=== PATIENT | female | born 1955 | race African-American/Black ===

== ENCOUNTER 2017-01-27 21:48 | Emergency (ER) | payer MEDICAID ==
[~2017-01-27] VITALS: Ht 175.3 cm; Wt 100.0 kg
[~2017-01-27 21:48] MED LIST: ACET-2178; ACET-3161 PO; ALBU90AE IH; AMIT25TA9 PO; AMLO5TAB88 PO; ASPI-1158 PO; BACL-141 PO; BENA1TAB18 PO; FLUT16SP15 NS; FLUT1DIS3 IH; GABA-290 PO; HYDR10SY11 PO; LORA10TA7 PO; MONT10TA21 PO; OMEP20CA4 PO; RIZA10TA26 PO; SIMV10TA6 PO; SIMV40TA5 PO; TOPI50TA21 PO
[2017-01-27] MEDS ORDERED: SODIUM CHLORIDE 0.9% 1,000 ML IV ONE (23:06)
[2017-01-27] MEDS ORDERED: ONDANSETRON HCL 4MG/2ML VIAL IV STA (23:06)
[2017-01-27] MEDS ORDERED: MORPHINE SULFATE 4 MG/ML CPJ (NOT FOR IM USE) IV STA (23:06)
[2017-01-27] MEDS ORDERED: VANCOMYCIN 1 G PREMIX 200 ML IV ONE (23:15)
[2017-01-27] MEDS ORDERED: CLINDAMYCIN 600 MG in DEXTROSE 5% WATER 50 ML IV ONE (23:15)
[2017-01-27 23:41] LABS: BASOPHILS % 0.9 % (0.0-2.0); EOSINOPHILS % 4.1 % (0.0-5.0); HEMATOCRIT. 36.6 % (36.0-48.0); HEMOGLOBIN. 12.1 g/dL (12.0-16.0); LYMPHOCYTES % 23.7 % (20.0-50.0); MEAN CORPUSCULAR HEMOGLOBIN 28.7 pg (28.0-32.0); MEAN PLATELET VOLUME 7.9 fl (7.4-10.4); MONOCYTES % 7.2 % (2.0-8.0); NEUTROPHILS % 64.1 % (40.0-76.0); PLATELET 260 x1000/uL (130-400); RED CELL DISTRIBUTION WIDTH 13.8 % (11.6-14.6)
[2017-01-27 23:42] LABS: CHLORIDE 110 mEq/L (98-107)
[2017-01-27 23:51] LABS: C REACTIVE PROTEIN QUANT 8.6 mg/L (0.0-3.0); CARBON DIOXIDE 28 mEq/L (21-32)
[2017-01-28] MEDS ORDERED: MORPHINE SULFATE 4 MG/ML CPJ (NOT FOR IM USE) IV ONE (01:00)
[2017-01-28 08:18] VITALS: BP 135/75
== END 2017-01-28 09:50 | disposition home or self-care (01) ==
LOC: ER 22:18
DX: M96.89 Other intraoperative and postprocedural complications and disorders of the musculoskeletal system (principal); I10 Essential (primary) hypertension; M19.90 Unspecified osteoarthritis, unspecified site; J45.909 Unspecified asthma, uncomplicated; Z87.891 Personal history of nicotine dependence; Z96.652 Presence of left artificial knee joint; Z79.82 Long term (current) use of aspirin; Z88.8 Allergy status to other drugs, medicaments and biological substances
CPT/HCPCS: 36415; 73562; 80053; 83605; 85025; 85651; 86140; 87040; 96365; 96367; 96375; 96376; 99285; J2270; J2405; J3370; J3490; J7030; J7040; Z7610; J7060

== ENCOUNTER → 2017-08-09 | Day surgery (SDC) | payer MEDICAID ==
[~2017-08-09] VITALS: Ht 175.3 cm; Wt 116.6 kg
[~2017-08-09] MED LIST changes: +ALBUTEROL 90MCG/PUFF 17GM INHALER INH ONE; +BUPIVACAINE HCL/EPINEPHRINE 0.5%/0.0005 30ML ONE; +FENTANYL CITRATE/PF 50MCG/ML 2ML VIAL ONE; +HYDROMORPHONE HCL/PF 2MG/ML CPJ IV PRN; +LABETALOL HCL 20MG/4ML CARPUJECT IV PRN; +LACTATED RINGERS 1,000 ML IV SCH; +LIDOCAINE HCL/PF 1% 10 MG/ML 5ML VIAL ONE; +MIDAZOLAM HCL 2 MG/2 ML VIAL ONE; +ONDANSETRON HCL 4MG/2ML VIAL IV PRN; +PROPOFOL 200MG/20ML VIAL IV ONE; -TOPI50TA21 PO; +TOPI50TA24 PO; +TRIAMCINOLONE ACETONIDE 40MG/ML 1ML VIAL ONE
[2017-08-09 08:51] VITALS: BP 142/89
== END | disposition home or self-care (01) ==
LOC: OR 05:35
PROVIDERS: ATTEND Orthopaedic Surgery
DX: M24.662 Ankylosis, left knee (principal); I25.2 Old myocardial infarction; I25.10 Atherosclerotic heart disease of native coronary artery without angina pectoris; I10 Essential (primary) hypertension; K21.9 Gastro-esophageal reflux disease without esophagitis; J45.909 Unspecified asthma, uncomplicated; B19.20 Unspecified viral hepatitis C without hepatic coma; E78.00 Pure hypercholesterolemia, unspecified; M19.90 Unspecified osteoarthritis, unspecified site; E66.01 Morbid (severe) obesity due to excess calories; Z98.890 Other specified postprocedural states; Z87.891 Personal history of nicotine dependence; Z88.8 Allergy status to other drugs, medicaments and biological substances; Z79.82 Long term (current) use of aspirin; Z79.899 Other long term (current) drug therapy
CPT/HCPCS: 27570; J0171; J1170; J2250; J3010; J3301; J3490; J7120; J2704

== ENCOUNTER 2018-11-27 14:22 | Inpatient (IN) | payer MEDICAID ==
[~2018-11-27] VITALS: Ht 175.3 cm; Wt 115.7 kg
[~2018-11-27 14:22] MED LIST changes: -ALBUTEROL 90MCG/PUFF 17GM INHALER INH ONE; -BUPIVACAINE HCL/EPINEPHRINE 0.5%/0.0005 30ML ONE; -FENTANYL CITRATE/PF 50MCG/ML 2ML VIAL ONE; -HYDROMORPHONE HCL/PF 2MG/ML CPJ IV PRN; -LABETALOL HCL 20MG/4ML CARPUJECT IV PRN; -LACTATED RINGERS 1,000 ML IV SCH; -LIDOCAINE HCL/PF 1% 10 MG/ML 5ML VIAL ONE; -MIDAZOLAM HCL 2 MG/2 ML VIAL ONE; -ONDANSETRON HCL 4MG/2ML VIAL IV PRN; -PROPOFOL 200MG/20ML VIAL IV ONE; -TRIAMCINOLONE ACETONIDE 40MG/ML 1ML VIAL ONE
[2018-11-27] MEDS ORDERED: ONDANSETRON HCL 4MG/2ML INJ IV STA (15:13)
[2018-11-27] MEDS ORDERED: MORPHINE SULFATE 4 MG/ML CPJ (NOT FOR IM USE) IV STA (15:13)
[2018-11-27 15:15] LABS: BASOPHILS % 0.8 % (0.0-2.0); EOSINOPHILS % 2.7 % (0.0-5.0); HEMATOCRIT. 38.2 % (36.0-48.0); HEMOGLOBIN. 12.8 g/dL (12.0-16.0); LYMPHOCYTES % 29.7 % (20.0-50.0); MEAN CORPUSCULAR HEMOGLOBIN 29.8 pg (28.0-32.0); MEAN CORPUSCULAR VOLUME 88.9 fL (81.0-99.0); MEAN PLATELET VOLUME 7.4 fl (7.4-10.4); MONOCYTES % 6.6 % (2.0-8.0); NEUTROPHILS % 60.2 % (40.0-76.0); PLATELET 222 x1000/uL (130-400); RED CELL DISTRIBUTION WIDTH 14.3 % (11.6-14.6)
[2018-11-27] MEDS ORDERED: NITROGLYCERIN OINT 1GM/INCH UDPKT TD ONE (15:15)
[2018-11-27] MEDS ORDERED: ASPIRIN 81MG TABLET PO ONE (15:15)
[2018-11-27 15:19] LABS: PARTIAL THROMBOPLASTIN TIME 29.2 sec (23.4-31.0); PROTHROMBIN TIME 10.2 sec (9.6-11.0)
[2018-11-27 15:26] LABS: CHLORIDE 113 mEq/L (98-107)
[2018-11-27 15:31] LABS: ETHANOL BLOOD < 10 mg/dL
[2018-11-27 15:40] LABS: T4 FREE 0.84 ng/dL (0.76-1.46)
[2018-11-27] MEDS ORDERED: DILTIAZEM HCL 5MG/ML 5ML VIAL IV ONE (16:00)
[2018-11-27] MEDS ORDERED: HYDROCODONE/ACETAMINOPHEN 5/325MG TABLET PO ONE (16:45)
[2018-11-27] MEDS ORDERED: NITROGLYCERIN 0.4MG TABLET SL SL ONE (16:45)
[2018-11-27] MEDS ORDERED: DIPHENHYDRAMINE 50MG/ML VIAL IV PRN (19:00)
[2018-11-27] MEDS ORDERED: LORAZEPAM 2MG/ML CPJ IV PRN (19:00)
[2018-11-27] MEDS ORDERED: ONDANSETRON HCL 4MG/2ML INJ IV PRN (19:00)
[2018-11-27] MEDS ORDERED: NA PHOS,M-B/NA PHOS,DI-BA ENEMA 118ML PR PRN (19:00)
[2018-11-27] MEDS ORDERED: DOCUSATE SODIUM 100MG CAPSULE PO PRN (19:00)
[2018-11-27] MEDS ORDERED: HYDRALAZINE 20MG/ML VIAL IV PRN (19:00)
[2018-11-27] MEDS ORDERED: ACETAMINOPHEN 325MG TABLET PO PRN (19:00)
[2018-11-27] MEDS ORDERED: IPRATROPIUM/ALBUTEROL 0.5-3(2.5)MG/3ML NEB INH PRN (19:00)
[2018-11-27] MEDS ORDERED: MAGNESIUM/ALUMINUM HYDROXIDE/SIMETHICONE 30ML UDC PO PRN (19:00)
[2018-11-27] MEDS ORDERED: CLONIDINE 0.1MG TABLET PO PRN (19:00)
[2018-11-27] MEDS ORDERED: GUAIFENESIN 200MG/10ML SUGAR FREE UDC PO PRN (19:00)
[2018-11-27 23:40] VITALS: BP 121/78
[2018-11-28 00:47] LABS: CREATINE KINASE 53 IU/L (26-192)
[2018-11-28 00:48] LABS: CREATINE KINASE MB FRACTION < 1.0 ng/mL (0.5-3.6)
[2018-11-28] MEDS: HYDROMORPHONE HCL/PF 2MG/ML CPJ IV PRN ×3 (01:54→19:00)
[2018-11-28] MEDS ORDERED: NASOI BOTHNSTRLS (03:05)
[2018-11-28 03:59] VITALS: BP 102/61
[2018-11-28] MEDS: SODIUM CHLORIDE 0.9% INJ 3ML FLUSH IVF SCH ×3 (05:42→20:56)
[2018-11-28 06:31] LABS: BASOPHILS % 0.4 % (0.0-2.0); EOSINOPHILS % 3.3 % (0.0-5.0); HEMATOCRIT. 35.5 % (36.0-48.0); HEMOGLOBIN. 11.8 g/dL (12.0-16.0); LYMPHOCYTES % 28.6 % (20.0-50.0); MEAN CORPUSCULAR HEMOGLOBIN 29.9 pg (28.0-32.0); MEAN CORPUSCULAR VOLUME 89.5 fL (81.0-99.0); MEAN PLATELET VOLUME 7.6 fl (7.4-10.4); MONOCYTES % 6.6 % (2.0-8.0); NEUTROPHILS % 61.1 % (40.0-76.0); PLATELET 197 x1000/uL (130-400); RED BLOOD CELL COUNT 3.97 mill/uL (4.2-5.4); RED CELL DISTRIBUTION WIDTH 14.3 % (11.6-14.6)
[2018-11-28 06:38] LABS: CHLORIDE 112 mEq/L (98-107)
[2018-11-28 06:47] LABS: CREATINE KINASE 49 IU/L (26-192)
[2018-11-28 06:49] LABS: CREATINE KINASE MB FRACTION < 1.0 ng/mL (0.5-3.6)
[2018-11-28] MEDS: HYDROCODONE/ACETAMINOPHEN 10/325MG TABLET PO PRN ×2 (08:05→22:35)
[2018-11-28] MEDS: ASPIRIN 81MG EC TABLET PO SCH (08:05)
[2018-11-28 09:10] VITALS: BP 126/66
[2018-11-28 09:58] LABS: T4 FREE 0.87 ng/dL (0.76-1.46)
[2018-11-28 12:00] VITALS: BP 146/87
[2018-11-28 15:09] LABS: CREATINE KINASE 47 IU/L (26-192)
[2018-11-28 15:10] LABS: CREATINE KINASE MB FRACTION < 1.0 ng/mL (0.5-3.6)
[2018-11-28 16:00] VITALS: BP 104/56
[2018-11-28] MEDS: APIXABAN 5 MG TABLET PO SCH (18:59)
[2018-11-28 20:10] VITALS: BP 124/94
[2018-11-28 23:47] VITALS: BP 124/68
[2018-11-29 00:41] LABS: CREATINE KINASE 45 IU/L (26-192)
[2018-11-29 00:42] LABS: CREATINE KINASE MB FRACTION < 1.0 ng/mL (0.5-3.6)
[2018-11-29 03:57] VITALS: BP 118/76
[2018-11-29] MEDS: SODIUM CHLORIDE 0.9% INJ 3ML FLUSH IVF SCH (05:09)
[2018-11-29] MEDS: APIXABAN 5 MG TABLET PO SCH (08:25)
[2018-11-29] MEDS: ASPIRIN 81MG EC TABLET PO SCH (08:25)
[2018-11-29] MEDS: HYDROMORPHONE HCL/PF 2MG/ML CPJ IV PRN (08:28)
[2018-11-29 09:48] LABS: CREATINE KINASE 45 IU/L (26-192); CREATINE KINASE MB FRACTION < 1.0 ng/mL (0.5-3.6)
[2018-11-29] MEDS: HYDROCODONE/ACETAMINOPHEN 10/325MG TABLET PO PRN (13:24)
[2018-11-29 14:13] VITALS: BP 116/63
== END 2018-11-29 16:00 | disposition home or self-care (01) | DRG 201 ==
LOC: ER 14:22 → 6WST 16:02 → EDBEDREQ 16:09 → ENRESERV 20:27
PROVIDERS: ADMIT Internal Medicine; ATTEND Internal Medicine
DX: I48.91 Unspecified atrial fibrillation (principal); E66.9 Obesity, unspecified; R07.9 Chest pain, unspecified; I25.2 Old myocardial infarction; G43.909 Migraine, unspecified, not intractable, without status migrainosus; I10 Essential (primary) hypertension; J45.909 Unspecified asthma, uncomplicated; Z96.659 Presence of unspecified artificial knee joint; Z90.710 Acquired absence of both cervix and uterus; Z88.8 Allergy status to other drugs, medicaments and biological substances; Z79.899 Other long term (current) drug therapy; Z68.37 Body mass index [BMI] 37.0-37.9, adult
CPT/HCPCS: 36415; 71045; 80061; 80320; 82550; 82553; 83036; 83735; 83880; 84439; 84443; 84481; 84484; 85379; 93005; 93306; 93970; 96374; 96375; 99291; J1170; J2270; J2405; J3490; G0480

== ENCOUNTER 2019-01-05 16:48 | Emergency (ER) | payer MEDICAID ==
[~2019-01-05 16:48] MED LIST changes: +NASOI BOTHNSTRLS
[2019-01-05 16:51] VITALS: BP 166/100
[2019-01-05] MEDS ORDERED: BACITRACIN ZINC OINT UDPKT TOP ONE (18:15)
[2019-01-05] MEDS ORDERED: TETANUS, DIPHTHERIA, PERTUSSIS VAC/PF 0.5ML (>7YR OLD) IM ONE (18:15)
== END 2019-01-05 19:21 | disposition home or self-care (01) ==
LOC: ER 16:48
DX: S00.81XA Abrasion of other part of head, initial encounter (principal); E78.00 Pure hypercholesterolemia, unspecified; I10 Essential (primary) hypertension; Z90.710 Acquired absence of both cervix and uterus; Z96.659 Presence of unspecified artificial knee joint; Z98.890 Other specified postprocedural states; Z79.899 Other long term (current) drug therapy; Z88.8 Allergy status to other drugs, medicaments and biological substances; Y08.89XA Assault by other specified means, initial encounter; Y93.89 Activity, other specified; Y92.89 Other specified places as the place of occurrence of the external cause; Y99.8 Other external cause status
CPT/HCPCS: 90471; 90715; 99283

== ENCOUNTER 2019-01-23 10:37 | Emergency (ER) | payer MEDICAID | END 2019-01-23 11:41 | disposition left against medical advice (07) | LOC: ER 10:37 | DX: R07.89 Other chest pain (principal); M79.602 Pain in left arm; Z53.21 Procedure and treatment not carried out due to patient leaving prior to being seen by health care provider ==

== ENCOUNTER 2019-01-31 00:07 | Emergency (ER) | payer MEDICAID ==
[~2019-01-31] VITALS: Ht 175.3 cm; Wt 102.0 kg
[2019-01-31] MEDS ORDERED: HYDROCODONE/ACETAMINOPHEN 5/325MG TABLET PO ONE (02:00)
[2019-01-31 03:45] VITALS: BP 136/78
== END 2019-01-31 03:46 | disposition home or self-care (01) ==
LOC: ER 00:07
DX: S90.121A Contusion of right lesser toe(s) without damage to nail, initial encounter (principal); M79.671 Pain in right foot; X58.XXXA Exposure to other specified factors, initial encounter; Y93.9 Activity, unspecified; Y92.89 Other specified places as the place of occurrence of the external cause
CPT/HCPCS: 73630; 99283

== ENCOUNTER 2019-02-10 13:17 | Emergency (ER) | payer MEDICAID ==
[~2019-02-10] VITALS: Ht 175.3 cm; Wt 102.0 kg
[2019-02-10] MEDS ORDERED: KETOROLAC 60MG/2ML VIAL IM STA (14:39)
[2019-02-10 16:00] VITALS: BP 164/84
== END 2019-02-10 16:10 | disposition home or self-care (01) ==
LOC: ER 13:17
DX: G57.81 Other specified mononeuropathies of right lower limb (principal); I10 Essential (primary) hypertension
CPT/HCPCS: 73630; 96372; 99283; J1885; Z7610

== ENCOUNTER 2019-02-24 22:52 | Emergency (ER) | payer MEDICAID ==
[~2019-02-24] VITALS: Ht 175.3 cm; Wt 102.0 kg
[2019-02-24 23:10] VITALS: BP 157/85
[2019-02-24] MEDS ORDERED: ASPIRIN 81MG TABLET PO ONE (23:30)
[2019-02-24] MEDS ORDERED: NITROGLYCERIN 0.4MG TABLET SL SL PRN (23:30)
[2019-02-24] MEDS ORDERED: ASPIRIN 325MG EC TABLET PO NR (23:35)
[2019-02-24 23:40] LABS: CHLORIDE 109 mEq/L (98-107)
[2019-02-24 23:41] LABS: BASOPHILS % 0.8 % (0.0-2.0); EOSINOPHILS % 3.5 % (0.0-5.0); HEMATOCRIT. 41.1 % (36.0-48.0); HEMOGLOBIN. 13.7 g/dL (12.0-16.0); LYMPHOCYTES % 32.7 % (20.0-50.0); MEAN CORPUSCULAR HEMOGLOBIN 29.7 pg (28.0-32.0); MEAN CORPUSCULAR VOLUME 88.7 fL (81.0-99.0); MEAN PLATELET VOLUME 8.1 fl (7.4-10.4); PLATELET 207 x1000/uL (130-400); RED BLOOD CELL COUNT 4.63 mill/uL (4.2-5.4); RED CELL DISTRIBUTION WIDTH 14.4 % (11.6-14.6)
[2019-02-25] MEDS ORDERED: ONDANSETRON HCL 4MG/2ML INJ IV STA (00:24)
[2019-02-25] MEDS ORDERED: MORPHINE SULFATE 4 MG/ML CPJ (NOT FOR IM USE) IV STA (00:24)
== END 2019-02-25 02:32 | disposition left against medical advice (07) ==
LOC: ER 22:52 → CANBEDREQ 02-25 02:35
DX: R07.89 Other chest pain (principal); R06.02 Shortness of breath; J45.909 Unspecified asthma, uncomplicated; I10 Essential (primary) hypertension; Z90.710 Acquired absence of both cervix and uterus; Z79.82 Long term (current) use of aspirin; Z79.899 Other long term (current) drug therapy; Z88.5 Allergy status to narcotic agent
CPT/HCPCS: 36415; 71045; 80053; 83880; 84484; 85025; 85379; 93005; 96374; 96375; 99284; J2270; J2405; Z7610

== ENCOUNTER 2019-05-14 08:48 | Emergency (ER) | payer MEDICARE, MEDICAID ==
[~2019-05-14] VITALS: Ht 175.3 cm; Wt 96.0 kg
[2019-05-14 09:38] VITALS: BP 151/88
[2019-05-14] MEDS ORDERED: LIDOCAINE HCL 1% 20ML VIAL (Pyxis) INJ INFIL ONE (10:30)
[2019-05-14] MEDS ORDERED: HYDROCODONE/ACETAMINOPHEN 5/325MG TABLET PO STA (10:45)
== END 2019-05-14 12:45 | disposition home or self-care (01) ==
LOC: ER 08:48
DX: M25.562 Pain in left knee (principal); M25.572 Pain in left ankle and joints of left foot; Z98.890 Other specified postprocedural states; Z91.81 History of falling; I10 Essential (primary) hypertension
CPT/HCPCS: 73562; 73610; 99283

== ENCOUNTER 2019-10-03 19:36 | Emergency (ER) | payer MEDICARE, MEDICAID ==
[~2019-10-03] VITALS: Ht 175.3 cm; Wt 117.0 kg
[~2019-10-03 19:36] MED LIST changes: -ACET-2178; +SIMV-46 PO; -SIMV10TA6 PO; +SIMV10TA97 PO; -SIMV40TA5 PO; +TOPUD
[2019-10-04 00:49] LABS: CHLORIDE 110 mEq/L (98-107)
[2019-10-04 00:55] LABS: BASOPHILS % 0.6 % (0.0-2.0); EOSINOPHILS % 3.5 % (0.0-5.0); HEMATOCRIT. 43.7 % (36.0-48.0); HEMOGLOBIN. 14.3 g/dL (12.0-16.0); LYMPHOCYTES % 23.2 % (20.0-50.0); MEAN CORPUSCULAR HEMOGLOBIN 29.3 pg (28.0-32.0); MEAN CORPUSCULAR VOLUME 89.5 fL (81.0-99.0); MEAN PLATELET VOLUME 7.9 fl (7.4-10.4); NEUTROPHILS % 65.7 % (40.0-76.0); PLATELET 234 x1000/uL (130-400); RED BLOOD CELL COUNT 4.89 mill/uL (4.2-5.4); RED CELL DISTRIBUTION WIDTH 13.7 % (11.6-14.6)
[2019-10-04] MEDS ORDERED: KETOROLAC 60MG/2ML VIAL IM ONE (01:30)
[2019-10-04 05:05] VITALS: BP 139/99
== END 2019-10-04 06:06 | disposition home or self-care (01) ==
LOC: ER 19:36
DX: M79.661 Pain in right lower leg (principal); I10 Essential (primary) hypertension; R60.0 Localized edema; Z88.5 Allergy status to narcotic agent; Z79.899 Other long term (current) drug therapy; J45.909 Unspecified asthma, uncomplicated; Z90.710 Acquired absence of both cervix and uterus
CPT/HCPCS: 36415; 80053; 83880; 85025; 85730; 93971; 96372; 99285; J1885

== ENCOUNTER 2020-02-10 16:48 | Emergency (ER) | payer MEDICARE, MEDICAID ==
[~2020-02-10] VITALS: Ht 175.3 cm; Wt 118.0 kg
[2020-02-10 17:34] VITALS: BP 163/100
[2020-02-10] MEDS ORDERED: ACETAMINOPHEN WITH CODEINE 300/30MG TABLET PO ONE (18:45)
== END 2020-02-10 20:47 | disposition home or self-care (01) ==
LOC: ER 16:48
DX: M25.562 Pain in left knee (principal); J45.909 Unspecified asthma, uncomplicated; I10 Essential (primary) hypertension; Z90.710 Acquired absence of both cervix and uterus; Z98.890 Other specified postprocedural states; Z79.82 Long term (current) use of aspirin; Z79.899 Other long term (current) drug therapy; Z88.6 Allergy status to analgesic agent
CPT/HCPCS: 73562; 99283

== ENCOUNTER 2020-10-13 15:46 | Inpatient (IN) | payer MEDICARE, MEDICAID ==
[~2020-10-13] VITALS: Ht 175.3 cm; Wt 129.3 kg
[~2020-10-13 15:46] MED LIST changes: -ASPI-1158 PO; +ASPI-1406 PO; -SIMV10TA97 PO; -TOPUD; +TOPUD PO
[2020-10-13] MEDS ORDERED: MORPHINE SULFATE 4 MG/ML CPJ (NOT FOR IM USE) IV STA (16:41)
[2020-10-13] MEDS ORDERED: METOPROLOL TARTRATE 50MG TABLET PO ONE (16:45)
[2020-10-13] MEDS ORDERED: MAGNESIUM 2 G PREMIX 50 ML IV ONE (16:45)
[2020-10-13] MEDS ORDERED: METOPROLOL TARTRATE 5MG/5ML VIAL IV ONE (16:45)
[2020-10-13] MEDS ORDERED: FUROSEMIDE 40MG/4ML VIAL IV ONE (16:45)
[2020-10-13 17:30] LABS: BASOPHILS % 0.5 % (0.0-2.0); EOSINOPHILS % 1.1 % (0.0-5.0); HEMATOCRIT. 43.1 % (36.0-48.0); HEMOGLOBIN. 14.2 g/dL (12.0-16.0); LYMPHOCYTES % 23.1 % (20.0-50.0); MEAN CORPUSCULAR VOLUME 87.9 fL (81.0-99.0); MEAN PLATELET VOLUME 7.5 fl (7.4-10.4); MONOCYTES % 6.7 % (2.0-8.0); NEUTROPHILS % 68.6 % (40.0-76.0); PLATELET 221 x1000/uL (130-400); RED CELL DISTRIBUTION WIDTH 14.9 % (11.6-14.6)
[2020-10-13 17:35] LABS: CHLORIDE 108 mEq/L (98-107)
[2020-10-13 17:38] LABS: PROTHROMBIN TIME 10.6 sec (9.6-11.0)
[2020-10-13] MEDS ORDERED: DIPHENHYDRAMINE 50MG/ML VIAL IV PRN (20:15)
[2020-10-13] MEDS ORDERED: ONDANSETRON HCL 4MG/2ML INJ IV PRN (20:15)
[2020-10-13] MEDS ORDERED: MAGNESIUM/ALUMINUM HYDROXIDE/SIMETHICONE 30ML UDC PO PRN (20:15)
[2020-10-13] MEDS ORDERED: CLONIDINE 0.1MG TABLET PO PRN (20:15)
[2020-10-13] MEDS ORDERED: GUAIFENESIN 200MG/10ML SUGAR FREE UDC PO PRN (20:15)
[2020-10-13] MEDS ORDERED: ACETAMINOPHEN 325MG TABLET PO PRN (20:15)
[2020-10-13] MEDS ORDERED: CARVEDILOL 6.25 MG TABLET PO SCH (21:00)
[2020-10-13] MEDS ORDERED: ZOLPIDEM TARTRATE 5MG TABLET PO PRN (21:00)
[2020-10-13] MEDS ORDERED: ENOXAPARIN 40MG/0.4ML SYR SUBCUT SCH (21:00)
[2020-10-13] MEDS: ACETAMINOPHEN 325MG TABLET PO PRN (21:39)
[2020-10-13] MEDS: ATORVASTATIN CALCIUM 40MG TABLET PO SCH (21:55)
[2020-10-13] MEDS: AMITRIPTYLINE 25MG TABLET PO SCH (21:55)
[2020-10-13] MEDS ORDERED: DILTIAZEM HCL 60MG TABLET PO SCH (22:00)
[2020-10-13] MEDS ORDERED: GABAPENTIN 100MG CAPSULE PO SCH (22:00)
[2020-10-13] MEDS: SODIUM CHLORIDE 0.9% INJ 3ML FLUSH IVF SCH (22:42)
[2020-10-13] MEDS ORDERED: HYDROCODONE/ACETAMINOPHEN 10/325MG TABLET PO NR (22:45)
[2020-10-13] MEDS ORDERED: MAGNESIUM HYDROXIDE 400MG/5ML 30ML UDC PO PRN (23:30)
[2020-10-13] MEDS ORDERED: HYDROXYZINE 10 MG TABLET PO PRN (23:30)
[2020-10-13] MEDS ORDERED: BUDESONIDE 0.5MG/2ML NEB HHN SCH (23:45)
[2020-10-14] VITALS (12 sets, daily range): BP systolic 97–124; BP diastolic 66–80
[2020-10-14] MEDS ORDERED: SODIUM CHLORIDE 0.9% 1,000 ML IV ONE (00:30)
[2020-10-14] MEDS: KETOROLAC 30MG/ML VIAL IV PRN ×2 (03:38→10:37)
[2020-10-14] MEDS: OMEPRAZOLE 20MG CAPSULE EXTENDED RELEASE PO SCH ×2 (06:55→21:45)
[2020-10-14] MEDS: SODIUM CHLORIDE 0.9% INJ 3ML FLUSH IVF SCH ×3 (06:56→21:56)
[2020-10-14] MEDS: GABAPENTIN 400MG CAPSULE PO SCH ×3 (06:56→21:46)
[2020-10-14] MEDS: LORATADINE 10MG TABLET PO SCH (08:34)
[2020-10-14] MEDS: TOPIRAMATE 25MG TABLET PO SCH ×2 (08:34→21:56)
[2020-10-14] MEDS: DOCUSATE SODIUM 100MG CAPSULE PO SCH ×2 (08:35→17:22)
[2020-10-14] MEDS: ASPIRIN 81MG EC TABLET PO SCH (08:35)
[2020-10-14] MEDS ORDERED: LOSARTAN POTASSIUM 25 MG TABLET PO SCH (09:00)
[2020-10-14 10:09] LABS: EOSINOPHILS % 1.5 % (0.0-5.0); HEMOGLOBIN. 13.4 g/dL (12.0-16.0); LYMPHOCYTES % 24.7 % (20.0-50.0); MEAN CORPUSCULAR HEMOGLOBIN 28.7 pg (28.0-32.0); MEAN CORPUSCULAR VOLUME 87.6 fL (81.0-99.0); MEAN PLATELET VOLUME 7.5 fl (7.4-10.4); MONOCYTES % 7.6 % (2.0-8.0); NEUTROPHILS % 65.2 % (40.0-76.0); PLATELET 206 x1000/uL (130-400); RED BLOOD CELL COUNT 4.68 mill/uL (4.2-5.4); RED CELL DISTRIBUTION WIDTH 15.2 % (11.6-14.6)
[2020-10-14 10:16] LABS: CHLORIDE 106 mEq/L (98-107)
[2020-10-14 10:21] LABS: PHOSPHORUS 4.1 mg/dL (2.5-4.9)
[2020-10-14] MEDS ORDERED: POTASSIUM CHLORIDE 20MEQ/PACKET PO SCH (13:00)
[2020-10-14] MEDS: DILTIAZEM HCL 60MG TABLET PO SCH ×2 (14:00→21:19)
[2020-10-14] MEDS: ENOXAPARIN 120MG/0.8ML SYR SUBCUT SCH (14:34)
[2020-10-14] MEDS: MONTELUKAST SODIUM 10MG TABLET PO SCH (17:22)
[2020-10-14] MEDS: HYDROCODONE/ACETAMINOPHEN 10/325MG TABLET PO PRN (17:23)
[2020-10-14] MEDS: ATORVASTATIN CALCIUM 40MG TABLET PO SCH (21:45)
[2020-10-14] MEDS: AMITRIPTYLINE 25MG TABLET PO SCH (21:45)
[2020-10-14] MEDS: ACETAMINOPHEN 325MG TABLET PO PRN (21:47)
[2020-10-15] VITALS (10 sets, daily range): BP systolic 111–157; BP diastolic 53–97
[2020-10-15] MEDS: HYDROCODONE/ACETAMINOPHEN 10/325MG TABLET PO PRN ×2 (05:09→13:38)
[2020-10-15] MEDS: SODIUM CHLORIDE 0.9% INJ 3ML FLUSH IVF SCH ×2 (06:13→14:00)
[2020-10-15] MEDS: DILTIAZEM HCL 60MG TABLET PO SCH ×3 (06:14→21:19)
[2020-10-15] MEDS: GABAPENTIN 400MG CAPSULE PO SCH ×3 (06:14→21:19)
[2020-10-15] MEDS: ENOXAPARIN 120MG/0.8ML SYR SUBCUT SCH ×2 (06:15→17:47)
[2020-10-15] MEDS: OMEPRAZOLE 20MG CAPSULE EXTENDED RELEASE PO SCH ×2 (07:08→21:18)
[2020-10-15 07:53] LABS: BASOPHILS % 0.6 % (0.0-2.0); EOSINOPHILS % 3.4 % (0.0-5.0); HEMATOCRIT. 40.9 % (36.0-48.0); HEMOGLOBIN. 13.1 g/dL (12.0-16.0); LYMPHOCYTES % 31.3 % (20.0-50.0); MEAN CORPUSCULAR HEMOGLOBIN 28.5 pg (28.0-32.0); MEAN PLATELET VOLUME 7.8 fl (7.4-10.4); MONOCYTES % 7.8 % (2.0-8.0); NEUTROPHILS % 56.9 % (40.0-76.0); PLATELET 185 x1000/uL (130-400); RED CELL DISTRIBUTION WIDTH 15.2 % (11.6-14.6)
[2020-10-15 08:09] LABS: CHLORIDE 103 mEq/L (98-107)
[2020-10-15] MEDS: DOCUSATE SODIUM 100MG CAPSULE PO SCH ×2 (08:58→17:47)
[2020-10-15] MEDS: LORATADINE 10MG TABLET PO SCH (08:58)
[2020-10-15] MEDS: TOPIRAMATE 25MG TABLET PO SCH ×2 (08:58→21:18)
[2020-10-15] MEDS: ASPIRIN 81MG EC TABLET PO SCH (08:58)
[2020-10-15] MEDS: KETOROLAC 30MG/ML VIAL IV PRN (08:59)
[2020-10-15] MEDS: MONTELUKAST SODIUM 10MG TABLET PO SCH (17:49)
[2020-10-15] MEDS: ATORVASTATIN CALCIUM 40MG TABLET PO SCH (21:18)
[2020-10-15] MEDS: AMITRIPTYLINE 25MG TABLET PO SCH (21:19)
[2020-10-16] MEDS ORDERED: ENOXAPARIN 150MG/ML SYR SUBCUT SCH (06:00)
== END 2020-10-15 23:07 | disposition home or self-care (01) | DRG 201 ==
LOC: ER 15:46 → 6WST 19:15 → ENRESERV 22:34 → 3WST 10-14 02:24
PROVIDERS: ADMIT Internal Medicine; ATTEND Internal Medicine
DX: I48.0 Paroxysmal atrial fibrillation (principal); I11.0 Hypertensive heart disease with heart failure; E66.9 Obesity, unspecified; M16.12 Unilateral primary osteoarthritis, left hip; G43.909 Migraine, unspecified, not intractable, without status migrainosus; E78.5 Hyperlipidemia, unspecified; F41.1 Generalized anxiety disorder; G89.4 Chronic pain syndrome; J44.9 Chronic obstructive pulmonary disease, unspecified; Z96.652 Presence of left artificial knee joint; Z68.41 Body mass index [BMI] 40.0-44.9, adult; Z87.891 Personal history of nicotine dependence; Z90.710 Acquired absence of both cervix and uterus; Z91.81 History of falling; Z88.8 Allergy status to other drugs, medicaments and biological substances; Z79.82 Long term (current) use of aspirin; Z79.899 Other long term (current) drug therapy; Z79.01 Long term (current) use of anticoagulants; I50.33 Acute on chronic diastolic (congestive) heart failure
CPT/HCPCS: 36415; 71045; 73502; 73560; 80048; 80053; 82962; 83735; 83880; 84100; 84443; 84484; 85025; 93005; 93306; 96374; 97116; 97162; 97530; 99291; J1650; J1885; J1940; J2270; J3475; J3490

== ENCOUNTER 2021-02-11 22:21 | Emergency (ER) | payer MEDICARE, MEDICAID ==
[~2021-02-11] VITALS: Ht 170.2 cm; Wt 103.0 kg
[2021-02-11] MEDS ORDERED: ONDANSETRON HCL 4MG/2ML INJ IV ONE (22:45)
[2021-02-11] MEDS ORDERED: DICYCLOMINE 10 MG/5 ML ORAL SYR PO ONE (22:45)
[2021-02-11] MEDS ORDERED: FAMOTIDINE 20MG/2ML VIAL IV ONE (22:45)
[2021-02-11] MEDS ORDERED: MAGNESIUM/ALUMINUM HYDROXIDE/SIMETHICONE 30ML UDC PO ONE (22:45)
[2021-02-11] MEDS ORDERED: VISCOUS LIDOCAINE 2% 15 ML UDC PO ONE (22:45)
[2021-02-11 23:23] LABS: HEMATOCRIT 38.7 % (36.0-48.0); HEMOGLOBIN 13.4 g/dL (12.0-16.0); MEAN CORPUSCULAR HEMOGLOBIN 30.2 pg (28.0-32.0); MEAN CORPUSCULAR VOLUME 87.4 fL (81.0-99.0); PLATELET 226 x1000/uL (130-400); RED BLOOD CELL COUNT 4.42 mill/uL (4.2-5.4); RED CELL DISTRIBUTION WIDTH 14.2 % (11.6-14.6)
[2021-02-11 23:26] LABS: CHLORIDE 113 mEq/L (98-107)
[2021-02-12 01:10] VITALS: BP 145/95
== END 2021-02-12 01:37 | disposition home or self-care (01) ==
LOC: ER 22:21
DX: K29.70 Gastritis, unspecified, without bleeding (principal); I11.9 Hypertensive heart disease without heart failure; J45.909 Unspecified asthma, uncomplicated; Z90.710 Acquired absence of both cervix and uterus
CPT/HCPCS: 36415; 80053; 83690; 85027; 93005; 96374; 96375; 99284; J2405; J3490

== ENCOUNTER 2024-04-04 18:52 | Emergency (ER) | payer MEDICARE, MEDICAID ==
[~2024-04-04] VITALS: Ht 177.8 cm; Wt 127.0 kg
[~2024-04-04 18:52] MED LIST changes: +ALBU18HF2 IH; -ALBU90AE IH; +AMLO10TA80 PO; -AMLO5TAB88 PO; +APIX5TAB MT; -ASPI-1406 PO; -BACL-141 PO; -BENA1TAB18 PO; +BENA1TAB19 PO; +CARV12.545 MT; +FLUT15.844 BOTHNSTRLS; -FLUT16SP15 NS; +FLUT1DIS2 INH; -FLUT1DIS3 IH; -GABA-290 PO; +GABA800T97 PO; +HYDR-4001 MT; +HYDR-4009 MT; -HYDR10SY11 PO; +MAGN500C4 PO; +MELA3TAB71 MT; +MELO-106 PO; +METO5TAB94 PO; +MONT-46 PO; -MONT10TA21 PO; -NASOI BOTHNSTRLS; -OMEP20CA4 PO; +RIZA-4 PO; -RIZA10TA26 PO; +SUCR1TAB MT; +TOPI-95 PO; -TOPI50TA24 PO; -TOPUD PO
[2024-04-04 19:06] VITALS: O2SAT 100
[2024-04-04 19:48] LABS: BASOPHILS % 0.6 % (0.0-2.0); EOSINOPHILS % 2.7 % (0.0-5.0); HEMATOCRIT. 39.6 % (36.0-48.0); HEMOGLOBIN. 12.7 g/dL (12.0-16.0); LYMPHOCYTES % 28.2 % (20.0-50.0); MEAN CORPUSCULAR HEMOGLOBIN 29.2 pg (28.0-32.0); MEAN CORPUSCULAR VOLUME 91.1 fL (81.0-99.0); MONOCYTES % 7.6 % (2.0-8.0); NEUTROPHILS % 60.9 % (40.0-76.0); PLATELET 180 x1000/uL (130-400); RED BLOOD CELL COUNT 4.34 mill/uL (4.2-5.4); RED CELL DISTRIBUTION WIDTH 15.6 % (11.6-14.6); WHITE BLOOD COUNT 5.4 x1000/uL (4.5-11.0)
[2024-04-04 19:53] LABS: CHLORIDE 112 mEq/L (98-107); POTASSIUM 4.2 mEq/L (3.5-5.1); SODIUM 145 mEq/L (136-145)
[2024-04-04 19:54] LABS: CARBON DIOXIDE 28 mEq/L (21-32)
[2024-04-04 19:55] LABS: CALCIUM 9.5 mg/dL (8.7-10.4)
[2024-04-04 19:59] LABS: CREATININE 0.7 mg/dL (0.6-1.0); GLUCOSE 101 mg/dL (70-105)
[2024-04-04 20:00] LABS: UREA NITROGEN BLOOD 19 mg/dL (9-23)
[2024-04-04 20:01] LABS: ALANINE AMINOTRANSFERASE 20 IU/L (10-49); ALBUMIN 4.6 g/dL (3.2-4.8); ASPARTATE AMINOTRANSFERASE 21 IU/L (<34); TROPONIN I HIGH SENSITIVITY 7 ng/L (3.0-34)
[2024-04-04 20:02] LABS: BILIRUBIN DIRECT 0.2 mg/dL (<=3.0); BILIRUBIN TOTAL 0.7 mg/dL (0.1-1.0)
[2024-04-04] MEDS ORDERED: POTA-205 MT (20:27)
[2024-04-04] MEDS ORDERED: FURO20TA4 MT (20:27)
[2024-04-04 20:36] LABS: CLARITY URINE CLEAR (CLEAR); COLOR URINE YELLOW (YELLOW); GLUCOSE URINE NEGATIVE (NEGATIVE); KETONES URINE NEGATIVE (NEGATIVE); LEUKOCYTE ESTERASE URINE NEGATIVE (NEGATIVE); NITRITE URINE NEGATIVE (NEGATIVE); OCCULT BLOOD URINE 1+ (NEGATIVE); PH URINE 7.5 (4.5-8.0); PROTEIN URINE 1+ (NEGATIVE); SPECIFIC GRAVITY URINE 1.022 (1.005-1.030)
[2024-04-04 20:47] LABS: BACTERIA URINE 1+; SQUAMOUS EPITHELIAL CELL URINE FEW /lpf (RARE/1+); WBC URINE 0-2 /hpf (0-2)
[2024-04-04] MEDS: FUROSEMIDE 40MG/4ML VIAL IM ONE (21:01)
[2024-04-04 21:04] VITALS: BP 158/90; PULSE 71; RESP 17; TEMP 36.83628; O2SAT 100
== END 2024-04-04 21:07 | disposition home or self-care (01) ==
LOC: ER 18:52
DX: R60.0 Localized edema (principal); I50.9 Heart failure, unspecified; J45.909 Unspecified asthma, uncomplicated; E78.00 Pure hypercholesterolemia, unspecified; I11.0 Hypertensive heart disease with heart failure; G43.909 Migraine, unspecified, not intractable, without status migrainosus; Z90.710 Acquired absence of both cervix and uterus; Z98.890 Other specified postprocedural states; Z79.899 Other long term (current) drug therapy
CPT/HCPCS: 99284; 80076; 80048; 81003; 83880; 85025; 84484; 36415; 93005; 96372; J1940